=== PATIENT | female | born 1975 | race Caucasian/White ===

== ENCOUNTER 2017-03-05 05:31 | Observation (INO) | payer BC ==
[2017-03-03 11:13] LABS: BASOPHILS 0.1 %; BASOPHILS ABSOLUTE 0.01 10/3/uL (0.0-0.16); EOSINOPHILS 2.5 %; EOSINOPHILS ABSOLUTE 0.23 10/3/uL (0.0-0.53); HEMATOCRIT 38.4 % (36.0-48.0); HEMOGLOBIN 12.6 g/dL (12.0-16.0); IMMATURE GRANULOCYTES 0.2 %; IMMATURE GRANULOCYTES ABSOLUTE 0.02 10/3/uL (0.0-0.11); LYMPHOCYTES 29.1 %; LYMPHOCYTES ABSOLUTE 2.69 10/3/uL (0.67-4.30); MANUAL DIFF NO %; MEAN CORPUS HGB CONC 32.8 g/dL (32.0-36.0); MEAN CORPUSCULAR HEMOGLOB 31.7 pg (26.0-34.0); MEAN CORPUSCULAR VOLUME 96.7 fL (80-100); MEAN PLATELET VOLUME 10.9 fL (9.2-13.0); MONOCYTES 8.7 %; NEUTROPHILS 59.4 %; NEUTROPHILS ABSOLUTE 5.49 10/3/uL (2.02-8.40); PLATELET COUNT 406 10/3/uL (150-400); RBC DISTRIBUTION WIDTH 12.2 % (12.0-16.0); RED CELL COUNT 3.97 10/6/uL (4.0-5.6); WHITE BLOOD CELLS 9.2 10/3/uL (4.5-10.5)
[2017-03-03 11:32] LABS: A/G RATIO 1.4 (0.7-1.9); ALBUMIN 3.8 G/DL (3.5-5.0); ALKALINE PHOSPHATASE 78 U/L (45-117); BUN (BLOOD UREA NITROGEN) 20 MG/DL (6-23); CALCIUM, SERUM 9.6 MG/DL (8.5-10.4); CHLORIDE, SERUM 108 MMOL/L (96-112); CO2 (CARBON DIOXIDE) 26 MMOL/L (24-34); CREATININE 0.99 MG/DL (0.55-1.02); GFR AFRICAN AMERICAN 82 ML/MIN (>=60); GFR NON AFRICAN AMERICAN 71 ML/MIN (>=60); GLOBULIN 2.8 G/DL (2.5-4.1); GLUCOSE, SERUM 75 MG/DL (60-99); POTASSIUM, SERUM 4.4 MMOL/L (3.5-5.3); SGOT(AST) 5 U/L (5-40); SGPT(ALT) 13 U/L (5-65); SODIUM, SERUM 141 MMOL/L (135-148); TOTAL BILIRUBIN 0.2 MG/DL (0-1.2); TOTAL PROTEIN 6.6 G/DL (6.0-8.5)
--- NOTE | ~2017-03-05 | OP ---
Record Of Operation [facility] [address] [place]. [address] NAME: GLEN JOSHI : 75 STATUS : DIS Christina PAT#: [id number] AGE: 42 ADM/REG DATE : 03/05/17 MR#: [id number] REPORT SERV DATE: 03/08/17 DICTATED BY: MASON LEZAMA DATE: 03/05/17 REPORT STATUS : Draft TRANSCRIBED BY: MODL DATE: 03/05/17 DATE OF PROCEDURE: PREOPERATIVE DIAGNOSIS: Gastroesophageal reflux disease. POSTOPERATIVE DIAGNOSIS: Gastroesophageal reflux disease. PROCEDURE: Laparoscopic Rakesh fundoplication. SURGEON: Mason Lezama M.D. RESIDENT SURGEON: Joseph Snyder M.D. ANESTHESIA: General. ESTIMATED BLOOD LOSS: Less than 5 mL. IV FLUIDS: Approximately 1000 mL crystalloid. SPECIMEN: None. DRAINS: None. COMPLICATIONS: None. INDICATIONS FOR PROCEDURE: This is a 41-year-old female, who has significant reflux and has had good relief with a PPI but does not wish to be on PPIs long-term. The above procedure was offered to the patient. Risks, benefits, and alternatives were explained. The patient expressed clear verbal understanding. Wished to proceed forward with this elective. PROCEDURE: The patient was brought back to the operative theater. Patient was in the operating table in the supine position. The patient was given adequate analgesia and anesthesia and this successfully endotracheally intubated. The patient was then placed in lithotomy position. Surgery site was then prepped and draped in a standard fashion. A formal time-out was then performed. Appropriate preoperative antibiotics had been administered. All present in the operating room were in agreement and elected to proceed forth with procedure. We then began by injecting local anesthetic periumbilically to the left and superior to the umbilicus. i then made a transverse incision approximately 1.5 cm in length and then used a 12 mm Optiview trocar and then gained access into the abdominal cavity. A 12 mm trocar was used for insufflation, pneumoperitoneum was achieved. The patient tolerated this well. Laparoscope was inserted through the abdominal cavity. Collection Quick surveillance revealed no blood, no bowel, no injury to omentum, small bowel, or mesentery with trocar placement. The liver appeared healthy and purple. We then placed a 5 mm trocar in the lateral left upper quadrant and then a 10 mm trocar in the midclavicular line left upper quadrant. We then placed two 5 mm trocars in the right upper quadrant. The 5 mm liver retractor was then introduced into the right upper quadrant trocar Record Of Operation [facility] [address] [place]. [address] NAME: GLEN JOSHI : 75 STATUS : DIS Christina PAT#: [id number] AGE: 42 ADM/REG DATE : 03/05/17 MR#: [id number] REPORT SERV DATE: 03/08/17 DICTATED BY: MASON LEZAMA DATE: 03/05/17 REPORT STATUS : Draft TRANSCRIBED BY: MODL DATE: 03/05/17 site and used to elevate the left lobe of the liver anteriorly exposing the esophageal hiatus. No paraesophageal hernia was noted. The gastrohepatic ligament was then opened cephalic to then expose the right sean. The peritoneum was incised with Harmonic over the right sean anterior to the esophagus and over the left sean. Blunt dissection was then performed. The extent of dissection into the mediastinum. The esophagus was then circumferentially mobilized. We then turned attention to the short gastrics and these were taken with the Harmonic scalpel. We were to come fully circumferentially around the esophagus custodial worker posterior window and getting great exposure of the confluence of the right and left sean. At the time, we identified our anterior and posterior vagal nerve trunks, it was noted that the anterior vagal nerve trunk was partially transected on the most distal part of the esophagus. With the posterior aspect of the gastroesophageal junction fully mobilized, we then placed a Emmanuel drain around the esophagus at this level and this was secured in place with two clips. We then used the [place] drain as a retractor with our esophagus mobilized and it was clear that we had 3-5 cm of esophagus easily able to retract into the abdominal cavity. The crura were then reapproximated with 0 Ethibond with a suture assist device in a [id number] fashion. The fundus of the stomach was then grasped and pulled posterior around the esophagus. Shoeshine technique was then performed and the stomach and our potential fundoplication wrap remained still, noting there was no tension meaning we had good mobilization of the fundus by taking the short gastrics. We then used 0 Ethibond taking a bite of our fundus at the apex and then 1 bite of the anterior portion of the esophagus as well and then portion of the left side of the greater curvature of the stomach. Being our proximal portion of our wrap. We then placed two more stitches caudad suturing just the fundus of the stomach to the greater curvature of stomach completing our wrap noted to be a 3 cm Rakesh fundoplication wrap. Washington drain was then cut and removed from the abdominal cavity passed off the operative field. The liver retractor was then removed. Trocars were removed under direct laparoscopic vision. No bleeding noted from anterior abdominal wall. The laparoscope was removed. Abdomen adequately desufflated the final remaining trocar and removed. Skin incision sites were then closed with 4-0 Monocryl in simple subcutaneous fashion. Skin is reapproximated well, hemostasis noted to have been achieved. Sterile dressing was then applied. Sterile drapes were broken down. Patient reversed from anesthesia. The patient was awake. Vital signs were stable. The patient was transferred to the recovery room in stable condition. DICTATED BY: MD VENTURA Bishop/LEIGH Mason Lezama M.D. / [id number]
[~2017-03-05 05:31] MED LIST: ABILIFY5 PO; ADDERALL20 MG PO; AMB10 PO; CYMBALTA30 PO; LOTENSIN HCT1 TA2 PO; PRIN20 PO; WELLSR150 PO
[2017-03-05] MEDS ORDERED: WELLXL150 PO (10:13)
[2017-03-06] MEDS ORDERED: PCET PO (11:55)
== END 2017-03-06 13:14 | disposition home or self-care (01) ==
LOC: SDC 05:31 → SDC/OF 09:11 → 5SO 10:07
PROVIDERS: Specialist
PROC: 0DV44ZZ Restriction of Esophagogastric Junction, Percutaneous Endoscopic Approach (ICD-10-PCS; principal; 2017-03-05 06:45)
DX: K21.0 Gastro-esophageal reflux disease with esophagitis (principal); J44.9 Chronic obstructive pulmonary disease, unspecified; F98.8 Other specified behavioral and emotional disorders with onset usually occurring in childhood and adolescence; I10 Essential (primary) hypertension; G43.909 Migraine, unspecified, not intractable, without status migrainosus; D64.9 Anemia, unspecified; K21.9 Gastro-esophageal reflux disease without esophagitis; F32.9 Major depressive disorder, single episode, unspecified; Z90.49 Acquired absence of other specified parts of digestive tract; Z88.5 Allergy status to narcotic agent
CPT/HCPCS: 80053; 84703; 85025; 93005; 96372; 96374; 96376; A9270-GY; G0378; J0690; J1885; J2250; J2370; J2405; J2710; J3010